=== PATIENT | female | born 1975 | race African-American/Black ===

== ENCOUNTER → 2016-07-27 | Outpatient (CLI) | payer OTHER ==
[2016-07-27 09:43] LABS: Basophils # (auto) 0 uL; DEFINITIVE VIEW TRANSMISSION; Eosinophils # (auto) 0 uL; Eosinophils % (auto) 0.1 % (0.0-7.0); Hematocrit 34.8 % (36.0-46.0); Hemoglobin 11.2 g/dL (12.2-16.2); Lymphocytes # (auto) 1.6 uL; Lymphocytes % (auto) 11.7 % (10.0-50.0); Mean Corpuscular Hemoglobin 25.8 pg (28.0-32.0); Mean Corpuscular Hgb Conc. 32.2 g/dL (32.0-36.0); Mean Corpuscular Volume 80.2 fL (80.0-100.0); Mean Platelet Volume 9.5 fL (7.4-10.4); Monocytes # (auto) 1.1 uL; Monocytes % (auto) 7.8 % (0.0-12.0); Neutrophils # (auto) 11.1 uL; Neutrophils % (auto) 80.4 % (37.0-80.0); Platelet Count (auto) 390 10^3/uL (140-450); Red Cell Distribution Width 17.8 % (11.6-16.0); White Blood Cell 13.8 10^3/uL (4.4-10.8)
[2016-07-27 09:56] LABS: Urine Bilirubin Negative (Negative); Urine Blood Negative /uL (Negative); Urine Color Yellow (Yellow); Urine Glucose Normal (Normal); Urine Ketone Negative (Negative); Urine Nitrite Negative (Negative); Urine RBC 2 /hpf (0 - 4); Urine Squamous Epithelial Cell FEW /hpf (<5); Urine Urobilinogen Normal (Negative); Urine pH 6.5 (5.0-8.0)
[2016-07-27 10:27] LABS: Albumin 3.3 g/dL (3.4-5.0); Alkaline Phosphatase 75 U/L (45-117); Anion Gap 7 (5-15); Aspartate Aminotransferase 11 U/L (15-37); BUN/Creatinine Ratio 17.7; Bilirubin, Total < 0.1 mg/dL (0.2-1.0); Blood Urea Nitrogen 14 mg/dL (7-18); Carbon Dioxide 23 mmol/L (21-32); Chloride 113 mmol/L (98-107); Cholesterol 187 mg/dL (< 200); GFR African American 103 mL/min; GFR Non-African American 85 mL/min; Glucose 97 mg/dL (74-106); HDL Cholesterol 72 mg/dL (40-59); LDL Cholesterol 123 mg/dL (< 100); Potassium 4.1 mmol/L (3.5-5.1); Sodium 143 mmol/L (136-145); Triglycerides 49 mg/dL (< 150)
== END | disposition home or self-care (01) ==
LOC: LAB 08:59
PROVIDERS: ATTEND Family Medicine
DX: D64.9 Anemia, unspecified (principal); N92.0 Excessive and frequent menstruation with regular cycle; Z00.00 Encounter for general adult medical examination without abnormal findings
CPT/HCPCS: 36415; 80053; 80061; 81001; 82306; 82607; 83036; 84443; 85025

== ENCOUNTER 2016-10-07 17:00 | Emergency (ER) | payer OTHER ==
[2016-10-07 18:12] LABS: CONDITION Y; DEFINITIVE SEE PRINTOUT; Eosinophils # (auto) 0.1 uL; Mean Corpuscular Volume 80.7 fL (80.0-100.0); Neutrophils % (auto) 59.2 % (37.0-80.0)
[2016-10-07 18:27] LABS: White Blood Cell 8.1 10^3/uL (4.4-10.8)
[2016-10-07 18:28] LABS: Basophils # (auto) 0.1 uL; Basophils % (auto) 0.7 % (0.0-2.0); Eosinophils % (auto) 0.6 % (0.0-7.0); Hematocrit 32.9 % (36.0-46.0); Hemoglobin 10.6 g/dL (12.2-16.2); Lymphocytes # (auto) 2.6 uL; Lymphocytes % (auto) 31.3 % (10.0-50.0); Monocytes # (auto) 0.7 uL; Monocytes % (auto) 8.2 % (0.0-12.0); Neutrophils # (auto) 4.8 uL
[2016-10-07 18:29] LABS: Mean Corpuscular Hgb Conc. 32.2 g/dL (32.0-36.0); Mean Platelet Volume 10.3 fL (7.4-10.4); Platelet Count (auto) 303 10^3/uL (140-450); Red Cell Distribution Width 23.8 % (11.6-16.0)
[2016-10-07 18:30] LABS: Albumin 3.6 g/dL (3.4-5.0); Anion Gap 6 (5-15); Aspartate Aminotransferase 12 U/L (15-37); Blood Urea Nitrogen 9 mg/dL (7-18); Calcium 8.3 mg/dL (8.5-10.1); Carbon Dioxide 25 mmol/L (21-32); Chloride 113 mmol/L (98-107); GFR African American 98 mL/min; GFR Non-African American 81 mL/min; Glucose 75 mg/dL (74-106); Potassium 4.1 mmol/L (3.5-5.1); Sodium 144 mmol/L (136-145)
[2016-10-07 18:35] LABS: Alkaline Phosphatase 60 U/L (45-117); Bilirubin, Total 0.2 mg/dL (0.2-1.0); Total Protein 6.6 g/dL (6.4-8.2)
[2016-10-07 19:02] LABS: Anisocytosis Slight; Hypochromia Slight; Platelet Estimate Adequate
== END 2016-10-07 22:01 | disposition left against medical advice (07) ==
LOC: ER 17:04
DX: R07.89 Other chest pain (principal); Z53.21 Procedure and treatment not carried out due to patient leaving prior to being seen by health care provider
CPT/HCPCS: 36415; 71020; 80053; 83735; 84484; 85025; 85379; 93005

== ENCOUNTER → 2016-11-06 | Outpatient (CLI) | payer OTHER | END | disposition home or self-care (01) | LOC: LAB 09:30 | PROVIDERS: ATTEND Family Medicine | DX: E03.9 Hypothyroidism, unspecified (principal) | CPT/HCPCS: 36415; 84439; 84443; 84481; 86431 ==

== ENCOUNTER 2017-03-22 17:22 | Emergency (ER) | payer OTHER ==
[~2017-03-22] VITALS: Ht 160 cm; Wt 72.6 kg
[2017-03-22 19:32] LABS: Urine Bacteria None Seen /hpf (None Seen)
[2017-03-22 20:05] LABS: Urine Blood Negative /uL (Negative); Urine Specific Gravity 1.009 (1.001-1.035); Urine WBC 1 /hpf (0 - 5)
[2017-03-22] MEDS ORDERED: HYDROmorphone HCL 2 MG/ML VL IM ONE (21:00)
[2017-03-22] MEDS ORDERED: ONDANSETRON HCL 4 MG/2 ML VIAL IM ONE (21:00)
[2017-03-22 21:56] VITALS: BP 100/52
== END 2017-03-22 22:36 | disposition home or self-care (01) ==
LOC: ER 17:22
DX: M54.16 Radiculopathy, lumbar region (principal); M87.852 Other osteonecrosis, left femur; M87.851 Other osteonecrosis, right femur; Z88.6 Allergy status to analgesic agent
CPT/HCPCS: 72131; 72192; 74176; 81001; 96372; 99285; J1170; J2405

== ENCOUNTER 2020-09-01 11:20 | Inpatient (IN) | payer OTHER ==
[~2020-09-01] VITALS: Ht 154.9 cm; Wt 78.3 kg
[2020-09-01 12:05] LABS: Basophils # (auto) 0.1 10 ^3/uL (0-0.2); Basophils % (auto) 0.5 % (0.0-2.0); Eosinophils # (auto) 0.2 10 ^3/uL (0-0.8); Mean Corpuscular Volume 82.1 fL (80.0-100.0); Neutrophils # (auto) 8.7 10 ^3/uL (1.6-8.6)
[2020-09-01 12:07] LABS: Eosinophils % (auto) 1.5 % (0.0-7.0); Hematocrit 33.3 % (36.0-46.0); Lymphocytes % (auto) 9.9 % (10.0-50.0); Mean Corpuscular Hgb Conc. 32.9 g/dL (32.0-36.0); Monocytes # (auto) 0.6 10 ^3/uL (0-1.3); Monocytes % (auto) 5.7 % (0.0-12.0); Neutrophils % (auto) 82.4 % (37.0-80.0); Nucleated Red Blood Cells % 0.1 %; Red Blood Cells 4.06 10^6/uL (4.0-5.20); White Blood Cell 10.6 10^3/uL (4.4-10.8)
[2020-09-01 12:19] LABS: Albumin 3.5 g/dL (3.4-5.0); Calcium 8.8 mg/dL (8.5-10.1)
[2020-09-01 12:22] LABS: BUN/Creatinine Ratio 13.9; Bilirubin, Total 0.2 mg/dL (0.2-1.0); Total Protein 6.8 g/dL (6.4-8.2)
[2020-09-01] MEDS ORDERED: MORPHINE SULF INJ 2 MG/ML SYRINGE 1ML IV ONE ×2 (12:30→13:30)
[2020-09-01] MEDS ORDERED: SODIUM CHLORIDE 0.9% 1,000 ML IV ONE (12:30)
[2020-09-01] MEDS ORDERED: ONDANSETRON HCL 4 MG/2 ML VIAL IV ONE (12:30)
[2020-09-01] MEDS ORDERED: SODIUM CHLORIDE 0.9% 1,000 ML IVB ONE (12:45)
[2020-09-01 12:57] LABS: Magnesium 2.1 mg/dL (1.6-2.6)
[2020-09-01 13:18] LABS: Urine Bacteria NONE SEEN /hpf (None Seen); Urine Blood 3+ /uL (Negative); Urine Mucus FEW (None Seen); Urine Specific Gravity 1.009 (1.001-1.035); Urine WBC 5 /hpf (0 - 5)
[2020-09-01] MEDS ORDERED: PROMETHAZINE HCL 25 MG/ML 1ML IV ONE (13:30)
[2020-09-01] MEDS ORDERED: cefTRIAXone 1GM/50ML D5W 50 ML IV ONE (13:30)
[2020-09-01 15:03] LABS: INR 0.95 (0.9-1.15); Partial Thromboplastin Time 25.6 sec (23.0-31.2)
[2020-09-01] MEDS: D5W/SOD CHL 0.45% 1,000 ML IV SCH (15:58)
[2020-09-01 18:15] VITALS: BP 95/51
[2020-09-01] MEDS ORDERED: METR500T14 PO (18:29)
[2020-09-01] MEDS ORDERED: GABA300C10 PO (18:29)
[2020-09-01] MEDS ORDERED: OMEP20TA PO (18:29)
[2020-09-01] MEDS: HYDROmorphone HCL 2 MG/ML VL IV PRN ×2 (19:57→23:13)
[2020-09-01 21:54] VITALS: BP 95/51
[2020-09-01] MEDS: metroNIDAZOLE 500MG/100ML 100 ML IV SCH (22:45)
[2020-09-02] MEDS: HYDROmorphone HCL 2 MG/ML VL IV PRN ×4 (02:22→16:53)
[2020-09-02] MEDS: D5W/SOD CHL 0.45% 1,000 ML IV SCH ×3 (02:22→22:53)
[2020-09-02] MEDS: metroNIDAZOLE 500MG/100ML 100 ML IV SCH ×3 (05:32→21:24)
[2020-09-02 05:45] VITALS: BP 109/65
[2020-09-02 05:51] LABS: Potassium 3.7 mmol/L (3.5-5.1)
[2020-09-02 06:02] LABS: BUN/Creatinine Ratio 10.3; Bilirubin, Total 0.2 mg/dL (0.2-1.0); Calcium 7.7 mg/dL (8.5-10.1); Total Protein 6.2 g/dL (6.4-8.2)
[2020-09-02 07:19] LABS: Basophils # (auto) 0.1 10 ^3/uL (0-0.2); Basophils % (auto) 0.8 % (0.0-2.0); Eosinophils # (auto) 0.3 10 ^3/uL (0-0.8); Eosinophils % (auto) 4.4 % (0.0-7.0); Hematocrit 31.2 % (36.0-46.0); Hemoglobin 10.3 g/dL (12.2-16.2); Lymphocytes # (auto) 1.5 10 ^3/uL (0.4-5.4); Lymphocytes % (auto) 23.3 % (10.0-50.0); Mean Corpuscular Hemoglobin 27.2 pg (28.0-32.0); Mean Corpuscular Hgb Conc. 33.1 g/dL (32.0-36.0); Mean Corpuscular Volume 82.3 fL (80.0-100.0); Monocytes # (auto) 0.6 10 ^3/uL (0-1.3); Monocytes % (auto) 9.4 % (0.0-12.0); Neutrophils % (auto) 62.1 % (37.0-80.0); Red Blood Cells 3.79 10^6/uL (4.0-5.20); Red Cell Distribution Width 14.9 % (11.8-14.3); White Blood Cell 6.5 10^3/uL (4.4-10.8)
[2020-09-02] MEDS: ONDANSETRON HCL 4 MG/2 ML VIAL IV PRN ×2 (08:18→21:24)
[2020-09-02 09:00] VITALS: BP 113/71
[2020-09-02] MEDS: cefTRIAXone 1GM/50ML D5W 50 ML IV SCH (09:19)
[2020-09-02] MEDS: PANTOPRAZOLE 40 MG/10 ML VIAL INJ IV SCH (09:19)
[2020-09-02] MEDS ORDERED: GASTROGRAFIN 120 ML SOL ONE (09:55)
[2020-09-02] MEDS ORDERED: HYDROcodone-ACET 5/325MG TAB PO PRN (12:15)
[2020-09-02 13:00] VITALS: BP 118/72
[2020-09-02 17:19] VITALS: BP 125/66
[2020-09-02] MEDS: ACETAMINOPHEN 500 MG TAB PO PRN (20:23)
[2020-09-03 05:00] VITALS: BP 100/71
[2020-09-03] MEDS: metroNIDAZOLE 500MG/100ML 100 ML IV SCH ×3 (05:19→22:39)
[2020-09-03] MEDS: ACETAMINOPHEN 500 MG TAB PO PRN (05:20)
[2020-09-03] MEDS: D5W/SOD CHL 0.45% 1,000 ML IV SCH ×3 (05:20→18:25)
[2020-09-03 09:00] VITALS: BP 109/65
[2020-09-03] MEDS: cefTRIAXone 1GM/50ML D5W 50 ML IV SCH (09:36)
[2020-09-03] MEDS: PANTOPRAZOLE 40 MG/10 ML VIAL INJ IV SCH (09:37)
[2020-09-03] MEDS ORDERED: HYDROcodone-ACET 10/325MG TAB PO PRN (11:45)
[2020-09-03] MEDS: KETOROLAC TROMETH 30 MG/ML 1ML VIAL IV PRN ×2 (12:26→22:40)
[2020-09-03] MEDS: ONDANSETRON HCL 4 MG/2 ML VIAL IV PRN ×3 (12:26→22:40)
[2020-09-03 12:30] VITALS: BP 128/73
[2020-09-03 17:00] VITALS: BP 114/63
[2020-09-03 22:00] VITALS: BP 119/75
[2020-09-04] MEDS: D5W/SOD CHL 0.45% 1,000 ML IV SCH ×3 (03:15→14:25)
[2020-09-04 05:00] VITALS: BP 96/59
[2020-09-04] MEDS: metroNIDAZOLE 500MG/100ML 100 ML IV SCH ×3 (05:09→22:00)
[2020-09-04 09:00] VITALS: BP 118/72
[2020-09-04] MEDS: PANTOPRAZOLE 40 MG/10 ML VIAL INJ IV SCH (09:29)
[2020-09-04] MEDS: cefTRIAXone 1GM/50ML D5W 50 ML IV SCH (09:30)
[2020-09-04 13:00] VITALS: BP 124/68
[2020-09-04 17:00] VITALS: BP 107/69
[2020-09-04 21:53] VITALS: BP 105/61
[2020-09-05] MEDS: D5W/SOD CHL 0.45% 1,000 ML IV SCH ×2 (04:00→10:25)
[2020-09-05 05:00] VITALS: BP 112/70
[2020-09-05] MEDS: metroNIDAZOLE 500MG/100ML 100 ML IV SCH ×2 (05:38→14:00)
[2020-09-05 08:30] VITALS: BP 111/64
[2020-09-05] MEDS: cefTRIAXone 1GM/50ML D5W 50 ML IV SCH (10:33)
[2020-09-05] MEDS: PANTOPRAZOLE 40 MG/10 ML VIAL INJ IV SCH (10:34)
[2020-09-05 12:30] VITALS: BP 127/81
[2020-09-05 13:55] VITALS: BP 127/81
== END 2020-09-05 15:20 | disposition home or self-care (01) | DRG 389 ==
LOC: ER 11:20 → OVERFLOW 14:59 → WEST WING 18:12
PROVIDERS: ADMIT Nurse Practitioner Acute Care; ATTEND Family Medicine
PROC: 0D9670Z Drainage of Stomach with Drainage Device, Via Natural or Artificial Opening (ICD-10-PCS; principal; 2020-09-02)
DX: K56.600 Partial intestinal obstruction, unspecified as to cause (principal); N39.0 Urinary tract infection, site not specified; Z20.822 Contact with and (suspected) exposure to COVID-19; N93.9 Abnormal uterine and vaginal bleeding, unspecified; D64.9 Anemia, unspecified; E66.9 Obesity, unspecified; E86.0 Dehydration; J45.909 Unspecified asthma, uncomplicated; Z82.49 Family history of ischemic heart disease and other diseases of the circulatory system; Z90.711 Acquired absence of uterus with remaining cervical stump; Z98.51 Tubal ligation status; Z79.899 Other long term (current) drug therapy; Z68.32 Body mass index [BMI] 32.0-32.9, adult
CPT/HCPCS: 36415; 71045; 74176; 74250; 80053; 81001; 83690; 83735; 85025; 85049; 85610; 85730; 87081; 87086; 87426; 96361; 96365; 96375; 96376; C9113; G0378; J0696; J1885; J2405; J3490

== ENCOUNTER 2020-12-11 12:17 | Emergency (ER) | payer OTHER ==
[~2020-12-11] VITALS: Ht 152.4 cm; Wt 75.7 kg
[~2020-12-11 12:17] MED LIST: GABA300C10 PO; METR500T14 PO; OMEP20TA PO
[2020-12-11 14:45] VITALS: BP 103/60
[2020-12-11 16:14] LABS: Basophils # (auto) 0.1 10 ^3/uL (0-0.2); Basophils % (auto) 0.7 % (0.0-2.0); Eosinophils # (auto) 0.1 10 ^3/uL (0-0.8); Eosinophils % (auto) 1.4 % (0.0-7.0); Hematocrit 39.3 % (36.0-46.0); Hemoglobin 12.6 g/dL (12.2-16.2); Mean Corpuscular Hemoglobin 25.9 pg (28.0-32.0); Mean Corpuscular Hgb Conc. 31.9 g/dL (32.0-36.0); Mean Corpuscular Volume 81.1 fL (80.0-100.0); Monocytes # (auto) 0.6 10 ^3/uL (0-1.3); Monocytes % (auto) 7.9 % (0.0-12.0); Neutrophils # (auto) 5.1 10 ^3/uL (1.6-8.6); Red Blood Cells 4.85 10^6/uL (4.0-5.20); Red Cell Distribution Width 17.2 % (11.8-14.3); White Blood Cell 7.9 10^3/uL (4.4-10.8)
[2020-12-11 17:01] LABS: Albumin 3.3 g/dL (3.4-5.0); Anion Gap 2 (5-15); Blood Urea Nitrogen 14 mg/dL (7-18); Calcium 8.9 mg/dL (8.5-10.1); Carbon Dioxide 27 mmol/L (21-32); Chloride 111 mmol/L (98-107); Glucose 79 mg/dL (74-106); Potassium 4.3 mmol/L (3.5-5.1); Sodium 140 mmol/L (136-145)
[2020-12-11 17:07] LABS: Alanine Aminotransferase 32 U/L (13-56); Alkaline Phosphatase 81 U/L (45-117); Aspartate Aminotransferase 16 U/L (15-37); BUN/Creatinine Ratio 18.9; Bilirubin, Total 0.2 mg/dL (0.2-1.0); Creatine Kinase IFCC 84 U/L (26-192); GFR African American 109 mL/min; GFR Non-African American 90 mL/min; Total Protein 6.7 g/dL (6.4-8.2)
== END 2020-12-11 18:25 | disposition home or self-care (01) ==
LOC: ER 12:17
DX: S80.12XA Contusion of left lower leg, initial encounter (principal); M62.838 Other muscle spasm; J45.909 Unspecified asthma, uncomplicated; Z90.710 Acquired absence of both cervix and uterus; Z98.51 Tubal ligation status; Z88.6 Allergy status to analgesic agent; W01.0XXA Fall on same level from slipping, tripping and stumbling without subsequent striking against object, initial encounter; Y93.89 Activity, other specified; Y92.89 Other specified places as the place of occurrence of the external cause; Y99.8 Other external cause status
CPT/HCPCS: 36415; 70450; 80053; 82550; 83735; 84484; 85025; 85379; 93005; 93971

== ENCOUNTER → 2021-10-16 | Outpatient (CLI) | payer OTHER | END | disposition home or self-care (01) | LOC: XYW 07:08 | DX: M17.11 Unilateral primary osteoarthritis, right knee (principal); M47.816 Spondylosis without myelopathy or radiculopathy, lumbar region; G47.9 Sleep disorder, unspecified; M79.7 Fibromyalgia | CPT/HCPCS: 78306; A9503 ==

== ENCOUNTER 2022-03-03 20:49 | Emergency (ER) | payer OTHER ==
[~2022-03-03] VITALS: Ht 154.9 cm; Wt 81.8 kg
[2022-03-03] MEDS ORDERED: IOHEXOL 300 MG/ML 100ML BOTTLE IJ ONE (21:29)
[2022-03-03] MEDS ORDERED: ONDANSETRON HCL 4 MG/2 ML VIAL IV ONE (21:30)
[2022-03-03] MEDS ORDERED: MORPHINE SULFATE 4 MG/ML SYR/VIAL IV ONE (21:30)
[2022-03-03 22:00] LABS: Basophils # (auto) 0.1 10 ^3/uL (0-0.2); Basophils % (auto) 0.6 % (0.0-2.0); Eosinophils # (auto) 0.3 10 ^3/uL (0-0.8); Eosinophils % (auto) 2.9 % (0.0-7.0); Hematocrit 41.7 % (36.0-46.0); Hemoglobin 13.6 g/dL (12.2-16.2); Lymphocytes # (auto) 2.3 10 ^3/uL (0.4-5.4); Lymphocytes % (auto) 26.2 % (10.0-50.0); Mean Corpuscular Hemoglobin 27.3 pg (28.0-32.0); Mean Corpuscular Hgb Conc. 32.6 g/dL (32.0-36.0); Mean Corpuscular Volume 83.8 fL (80.0-100.0); Monocytes # (auto) 0.7 10 ^3/uL (0-1.3); Neutrophils # (auto) 5.4 10 ^3/uL (1.6-8.6); Neutrophils % (auto) 62.3 % (37.0-80.0); Nucleated Red Blood Cells % 0.2 %; Red Blood Cells 4.97 10^6/uL (4.0-5.20); Red Cell Distribution Width 14.5 % (11.8-14.3); White Blood Cell 8.7 10^3/uL (4.4-10.8)
[2022-03-03 22:13] LABS: Albumin 3.7 g/dL (3.4-5.0); BUN/Creatinine Ratio 16.7; Calcium 9.3 mg/dL (8.5-10.1); Potassium 4.2 mmol/L (3.5-5.1)
[2022-03-03 22:16] LABS: Bilirubin, Total 0.3 mg/dL (0.2-1.0); Total Protein 7.2 g/dL (6.4-8.2)
[2022-03-04 04:15] VITALS: BP 131/78
== END 2022-03-04 04:26 | disposition home or self-care (01) ==
LOC: ER 20:49
DX: R10.84 Generalized abdominal pain (principal); R11.0 Nausea; M79.7 Fibromyalgia; K76.0 Fatty (change of) liver, not elsewhere classified; Z90.711 Acquired absence of uterus with remaining cervical stump; Z98.51 Tubal ligation status; Z79.899 Other long term (current) drug therapy
CPT/HCPCS: 36415; 74177; 80053; 82150; 83690; 85025; 96374; 96375; 99285; J2270; J2405; Q9967

== ENCOUNTER 2022-05-20 13:18 | Emergency (ER) | payer OTHER ==
[~2022-05-20] VITALS: Ht 154.9 cm; Wt 84.0 kg
[2022-05-20] MEDS ORDERED: MORPHINE SULFATE 4 MG/ML SYR/VIAL IV ONE (13:45)
[2022-05-20] MEDS ORDERED: MORPHINE SULFATE 4 MG/ML SYR/VIAL IM ONE (13:45)
[2022-05-20] MEDS ORDERED: ONDANSETRON HCL 4 MG/2 ML VIAL IM ONE (13:45)
[2022-05-20] MEDS ORDERED: ONDANSETRON HCL 4 MG/2 ML VIAL IV ONE (13:45)
[2022-05-20] MEDS ORDERED: IOHEXOL 350 MG/ML 100ML IJ ONE (13:50)
[2022-05-20 14:03] LABS: Basophils # (auto) 0 10 ^3/uL (0-0.2); Basophils % (auto) 0.5 % (0.0-2.0); Eosinophils # (auto) 0.2 10 ^3/uL (0-0.8); Eosinophils % (auto) 2.1 % (0.0-7.0); Hematocrit 43.4 % (36.0-46.0); Hemoglobin 14.2 g/dL (12.2-16.2); Lymphocytes # (auto) 2.8 10 ^3/uL (0.4-5.4); Mean Corpuscular Hemoglobin 27.2 pg (28.0-32.0); Mean Corpuscular Hgb Conc. 32.7 g/dL (32.0-36.0); Mean Corpuscular Volume 83.3 fL (80.0-100.0); Monocytes # (auto) 0.6 10 ^3/uL (0-1.3); Monocytes % (auto) 7.8 % (0.0-12.0); Neutrophils # (auto) 4.6 10 ^3/uL (1.6-8.6); Neutrophils % (auto) 55.6 % (37.0-80.0); Nucleated Red Blood Cells % 0.2 %; Red Blood Cells 5.21 10^6/uL (4.0-5.20); Red Cell Distribution Width 14.3 % (11.8-14.3); White Blood Cell 8.2 10^3/uL (4.4-10.8)
[2022-05-20 14:06] LABS: Albumin 3.8 g/dL (3.4-5.0); Calcium 9.7 mg/dL (8.5-10.1); Magnesium 2.3 mg/dL (1.6-2.6); Potassium 4.5 mmol/L (3.5-5.1)
[2022-05-20 14:10] LABS: BUN/Creatinine Ratio 17.9; Bilirubin, Total 0.2 mg/dL (0.2-1.0); Total Protein 7.1 g/dL (6.4-8.2)
[2022-05-20 14:16] LABS: INR 0.95 (0.9-1.15); Partial Thromboplastin Time 27.6 sec (24.6-33.4)
[2022-05-20 14:19] LABS: Alcohol, Urine < 3.0 mg/dL (0-10); Amphetamine Screen, Urine NEGATIVE (NEGATIVE); Barbiturate Scree,Urine NEGATIVE (NEGATIVE); Benzodiazephine Screen, Urine NEGATIVE (NEGATIVE); Cannabinoid Screen, Urine POSITIVE (NEGATIVE); Cocaine Screen, Urine NEGATIVE (NEGATIVE)
[2022-05-20 14:27] LABS: Opiate Scree,Urine NEGATIVE (NEGATIVE); Phencyclidine Screen, Urine NEGATIVE (NEGATIVE)
[2022-05-20] MEDS ORDERED: traMADol HCL 50 MG TAB PO ONE (14:30)
[2022-05-20 14:36] LABS: Urine Bacteria NONE SEEN /hpf (None Seen); Urine Blood Negative /uL (Negative); Urine Mucus FEW (None Seen); Urine Specific Gravity 1.024 (1.001-1.035); Urine WBC 2 /hpf (0 - 5)
[2022-05-20] MEDS ORDERED: TRAM-297 PO (15:28)
[2022-05-20 15:55] VITALS: BP 117/64
== END 2022-05-20 15:57 | disposition home or self-care (01) ==
LOC: ER 13:18
DX: R07.89 Other chest pain (principal); M79.7 Fibromyalgia; J45.909 Unspecified asthma, uncomplicated; Z88.6 Allergy status to analgesic agent; Z98.51 Tubal ligation status; Z32.02 Encounter for pregnancy test, result negative; Z79.899 Other long term (current) drug therapy
CPT/HCPCS: 36415; 71275; 80053; 80307; 81001; 81025; 83735; 83880; 84484; 85025; 85610; 85730; 93005; 99285; Q9967